=== PATIENT | female | born 1960 | race African-American/Black ===

== ENCOUNTER 2017-03-15 16:14 | Inpatient (IN) | payer MEDICAID ==
[~2017-03-15] VITALS: Ht 160 cm; Wt 85.3 kg
[~2017-03-15 16:14] MED LIST: ALBU6.7H INH; ATROV INH; BENA20TA3 PO; FLUT1DIS3 ORI
[2017-03-15 16:52] LABS: BASOPHILS % 0.5 % (0.0-2.0); EOSINOPHILS % 3.3 % (0.0-5.0); HEMOGLOBIN. 10.6 g/dL (12.0-16.0); LYMPHOCYTES % 27.6 % (20.0-50.0); MEAN CORPUSCULAR HEMOGLOBIN 28.4 pg (28.0-32.0); MEAN CORPUSCULAR VOLUME 85.7 fL (81.0-99.0); MEAN PLATELET VOLUME 7.4 fl (7.4-10.4); MONOCYTES % 5.2 % (2.0-8.0); NEUTROPHILS % 63.4 % (40.0-76.0); PLATELET 411 x1000/uL (130-400); RED BLOOD CELL COUNT 3.73 mill/uL (4.2-5.4)
[2017-03-15 16:55] LABS: CHLORIDE 105 mEq/L (98-107)
[2017-03-15 16:56] LABS: BG BASE EXCESS 1.1 mmol/L (-2.0-2.0); BG CARBOXYHEMOGLOBIN 0.2 % (0.5-1.5); BG DEOXYHEMOGLOBIN 5.2 % (0.0-5.0); BG HCO3 ACT 25.4 mmol/L (22.0-26.0); BG METHEMOGLOBIN 0.3 % (0.0-1.5); BG OXYGEN SATURATION 94.8 % (92.0-98.5); BG OXYHEMOGLOBIN 94.3 % (94.0-97.0); BG PCO2 39.3 mmHg (35.0-45.0); BG PH 7.429 (7.350-7.450); BG PO2 75.2 mmHg (75.0-100.0); BG SAMPLE SITE RIGHT RADIAL; BG TOTAL HEMOGLOBIN 11.4 g/dL (12.0-18.0); BG VENT MODE NASAL CANNULA
[2017-03-15 17:01] LABS: D-DIMER 0.95 mg/L FEU (<0.50); INR 1.1; PROTHROMBIN TIME 11.2 sec (9.4-11.6)
[2017-03-15 17:06] LABS: CARBON DIOXIDE 29 mEq/L (21-32); ETHANOL BLOOD < 10 mg/dL; TROPONIN I < 0.02 ng/mL (0.00-0.04)
[2017-03-15 23:18] VITALS: BP 148/87
[2017-03-15 23:25] VITALS: BP 148/87
[2017-03-15] MEDS ORDERED: BENA40TA3 PO (23:31)
[2017-03-16] MEDS: METHYLPREDNISOLONE SOD SUCC 40 MG/ML VIAL IV SCH ×4 (01:30→21:14)
[2017-03-16] MEDS ORDERED: CLONIDINE 0.1MG TABLET PO PRN (01:30)
[2017-03-16] MEDS ORDERED: MORPHINE SULFATE 2 MG/ML CPJ (NOT FOR IM USE) IV PRN (01:30)
[2017-03-16] MEDS ORDERED: IPRATROPIUM/ALBUTEROL 0.5-3(2.5)MG/3ML NEB HHN PRN (01:30)
[2017-03-16 04:00] VITALS: BP 146/72
[2017-03-16] MEDS: IPRATROPIUM/ALBUTEROL 0.5-3(2.5)MG/3ML NEB HHN SCH ×5 (04:33→20:46)
[2017-03-16 07:33] LABS: BASOPHILS % 0.6 % (0.0-2.0); EOSINOPHILS % 1.3 % (0.0-5.0); HEMATOCRIT. 31.1 % (36.0-48.0); LYMPHOCYTES % 7.2 % (20.0-50.0); MEAN CORPUSCULAR HEMOGLOBIN 27.8 pg (28.0-32.0); MEAN CORPUSCULAR VOLUME 86.3 fL (81.0-99.0); MEAN PLATELET VOLUME 7.9 fl (7.4-10.4); MONOCYTES % 2.6 % (2.0-8.0); NEUTROPHILS % 88.3 % (40.0-76.0); PLATELET 391 x1000/uL (130-400); RED CELL DISTRIBUTION WIDTH 14.9 % (11.6-14.6)
[2017-03-16 07:46] VITALS: BP 109/59
[2017-03-16 07:51] LABS: CARBON DIOXIDE 28 mEq/L (21-32); CHLORIDE 106 mEq/L (98-107)
[2017-03-16 07:54] LABS: HDL CHOLESTEROL 51 mg/dL (40-59); LDL CHOLESTEROL 59 mg/dL (5-100)
[2017-03-16] MEDS: BENAZEPRIL 20MG TABLET PO SCH (09:10)
[2017-03-16 09:59] LABS: BG BASE EXCESS 2.2 mmol/L (-2.0-2.0); BG CARBOXYHEMOGLOBIN 0.1 % (0.5-1.5); BG DEOXYHEMOGLOBIN 3.6 % (0.0-5.0); BG FRACTION INSPIRED OXYGEN 28; BG HCO3 ACT 27.1 mmol/L (22.0-26.0); BG METHEMOGLOBIN 0.4 % (0.0-1.5); BG OXYGEN SATURATION 96.4 % (92.0-98.5); BG OXYHEMOGLOBIN 95.9 % (94.0-97.0); BG PCO2 43.5 mmHg (35.0-45.0); BG PH 7.413 (7.350-7.450); BG PO2 87.4 mmHg (75.0-100.0); BG SAMPLE SITE RIGHT RADIAL; BG VENT MODE NASAL CANNULA
[2017-03-16 12:26] VITALS: BP 121/72
[2017-03-16] MEDS ORDERED: LIDOCAINE HCL/PF 1% 2ML VIAL ONE (13:02)
[2017-03-16 15:39] VITALS: BP 145/67
[2017-03-16 20:00] VITALS: BP 155/87
[2017-03-17] VITALS: BP 134/68
[2017-03-17] MEDS: IPRATROPIUM/ALBUTEROL 0.5-3(2.5)MG/3ML NEB HHN SCH ×5 (01:04→20:00)
[2017-03-17 04:00] VITALS: BP 97/52
[2017-03-17] MEDS: METHYLPREDNISOLONE SOD SUCC 40 MG/ML VIAL IV SCH ×2 (05:45→18:13)
[2017-03-17 08:00] VITALS: BP 140/75
[2017-03-17] MEDS: BENAZEPRIL 20MG TABLET PO SCH (08:26)
[2017-03-17] MEDS ORDERED: ENOXAPARIN 30MG/0.3ML SYR SUBCUT SCH (09:15)
[2017-03-17] MEDS: ENOXAPARIN 40MG/0.4ML SYR SUBCUT SCH (09:30)
[2017-03-17] MEDS: CLOBETASOL 0.05 % CREAM 15GM TOP SCH ×2 (11:19→21:07)
[2017-03-17 12:00] VITALS: BP_SYST 136; BP_SYST 140; BP_DIAS 70; BP_DIAS 75
[2017-03-17 16:05] VITALS: BP 137/67
[2017-03-17 20:00] VITALS: BP 104/59
[2017-03-17] MEDS: HYDROCORTISONE 2.5% CREAM 20GM TOP SCH (20:56)
[2017-03-18] VITALS: BP 133/75
[2017-03-18] MEDS: IPRATROPIUM/ALBUTEROL 0.5-3(2.5)MG/3ML NEB HHN SCH ×6 (00:35→21:01)
[2017-03-18 04:00] VITALS: BP 126/73
[2017-03-18] MEDS: METHYLPREDNISOLONE SOD SUCC 40 MG/ML VIAL IV SCH (05:42)
[2017-03-18] MEDS: ENOXAPARIN 40MG/0.4ML SYR SUBCUT SCH (08:41)
[2017-03-18] MEDS: CLOBETASOL 0.05 % CREAM 15GM TOP SCH ×2 (08:42→23:51)
[2017-03-18] MEDS: BENAZEPRIL 20MG TABLET PO SCH (08:42)
[2017-03-18] MEDS: HYDROCORTISONE 2.5% CREAM 20GM TOP SCH ×2 (08:45→21:54)
[2017-03-18 08:47] VITALS: BP 140/68
[2017-03-18 12:30] VITALS: BP 146/66
[2017-03-18 16:45] VITALS: BP 152/72
[2017-03-18 20:00] VITALS: BP 154/76
[2017-03-19] VITALS: BP 125/66
[2017-03-19] MEDS: IPRATROPIUM/ALBUTEROL 0.5-3(2.5)MG/3ML NEB HHN SCH ×6 (00:09→20:30)
[2017-03-19 04:00] VITALS: BP 139/65
[2017-03-19] MEDS: BENAZEPRIL 20MG TABLET PO SCH (08:21)
[2017-03-19] MEDS: METHYLPREDNISOLONE SOD SUCC 40 MG/ML VIAL IV SCH (08:21)
[2017-03-19] MEDS: CLOBETASOL 0.05 % CREAM 15GM TOP SCH ×2 (08:22→21:09)
[2017-03-19] MEDS: ENOXAPARIN 40MG/0.4ML SYR SUBCUT SCH (08:26)
[2017-03-19] MEDS: HYDROCORTISONE 2.5% CREAM 20GM TOP SCH ×2 (08:28→21:09)
[2017-03-19 12:00] VITALS: BP 138/68
[2017-03-19 16:00] VITALS: BP 141/65
[2017-03-19 20:00] VITALS: BP 115/53
[2017-03-20] VITALS: BP 128/67
[2017-03-20 04:00] VITALS: BP 132/67
[2017-03-20] MEDS: IPRATROPIUM/ALBUTEROL 0.5-3(2.5)MG/3ML NEB HHN SCH ×5 (04:42→20:25)
[2017-03-20 08:00] VITALS: BP 130/67
[2017-03-20] MEDS: ENOXAPARIN 40MG/0.4ML SYR SUBCUT SCH (08:53)
[2017-03-20] MEDS: BENAZEPRIL 20MG TABLET PO SCH (08:56)
[2017-03-20] MEDS: METHYLPREDNISOLONE SOD SUCC 40 MG/ML VIAL IV SCH (08:56)
[2017-03-20] MEDS: HYDROCORTISONE 2.5% CREAM 20GM TOP SCH ×2 (08:57→22:11)
[2017-03-20] MEDS: CLOBETASOL 0.05 % CREAM 15GM TOP SCH ×2 (08:57→22:12)
[2017-03-20 12:00] VITALS: BP 165/68
[2017-03-20 16:00] VITALS: BP 109/53
[2017-03-20 20:00] VITALS: BP 146/68
[2017-03-21] VITALS: BP 131/68
[2017-03-21] MEDS: IPRATROPIUM/ALBUTEROL 0.5-3(2.5)MG/3ML NEB HHN SCH ×3 (00:30→09:48)
[2017-03-21 04:00] VITALS: BP 127/77
[2017-03-21] MEDS: BENAZEPRIL 20MG TABLET PO SCH (08:58)
[2017-03-21] MEDS: METHYLPREDNISOLONE SOD SUCC 40 MG/ML VIAL IV SCH (08:58)
[2017-03-21] MEDS: ENOXAPARIN 40MG/0.4ML SYR SUBCUT SCH (09:00)
[2017-03-21] MEDS: HYDROCORTISONE 2.5% CREAM 20GM TOP SCH (09:05)
[2017-03-21] MEDS: CLOBETASOL 0.05 % CREAM 15GM TOP SCH (09:06)
[2017-03-21] MEDS ORDERED: HYDR453.3 TOP (12:10)
[2017-03-21] MEDS ORDERED: CLOB30CR27 TOP (12:10)
[2017-03-21] MEDS ORDERED: BENA20TA3 PO (12:10)
[2017-03-21] MEDS ORDERED: ALBU6.7H INH (12:10)
[2017-03-21] MEDS ORDERED: ATROV INH (12:10)
[2017-03-21] MEDS ORDERED: METH4TAB17 PO (12:29)
[2017-03-21 12:49] VITALS: BP 130/73
== END 2017-03-21 13:10 | disposition home or self-care (01) | DRG 133 ==
LOC: ER 16:19 → SUPCPDRO 21:33 → EDBEDREQ 22:00 → 5WST 22:00 → EDBEDREQTM 22:00 → ENRESERV 22:04 → ER 22:45
PROVIDERS: ADMIT Internal Medicine; ATTEND Internal Medicine
DX: J96.20 Acute and chronic respiratory failure, unspecified whether with hypoxia or hypercapnia (principal); Z99.81 Dependence on supplemental oxygen; R65.10 Systemic inflammatory response syndrome (SIRS) of non-infectious origin without acute organ dysfunction; J44.1 Chronic obstructive pulmonary disease with (acute) exacerbation; J45.901 Unspecified asthma with (acute) exacerbation; E66.01 Morbid (severe) obesity due to excess calories; I10 Essential (primary) hypertension; L40.9 Psoriasis, unspecified; J98.11 Atelectasis; Z87.891 Personal history of nicotine dependence; Z88.8 Allergy status to other drugs, medicaments and biological substances; Z68.33 Body mass index [BMI] 33.0-33.9, adult; Z88.6 Allergy status to analgesic agent; Z79.899 Other long term (current) drug therapy
CPT/HCPCS: 36415; 36600; 71010; 80053; 80061; 82375; 82805; 83036; 83880; 84484; 85025; 85379; 85610; 93005; 94640; 94664; 99291; G0482; J1650; J2920; J3490; J7620